=== PATIENT | male | born 1965 | race Caucasian/White ===

== ENCOUNTER 2021-05-02 15:48 | Emergency (ER) | payer SELFPAY ==
[~2021-05-02] VITALS: Ht 177.8 cm; Wt 77.1 kg
--- NOTE | 2021-05-02 15:48 | NUR ---
[facility]40-[facility] RA88 from home with c/o pain/wound to E. There are no ER beds available and pt is waiting with EMS outside ER.
--- NOTE | 2021-05-02 16:10 | NUR ---
Pt was triaged and placed in ER waiting room via w/c. There are no ER beds available at this time.
== END 2021-05-02 18:58 | disposition left against medical advice (07) ==
LOC: ER 15:48
DX: Z53.21 Procedure and treatment not carried out due to patient leaving prior to being seen by health care provider (principal)